=== PATIENT | female | born 1955 | race Caucasian/White ===

== ENCOUNTER → 2023-01-08 17:52 | Outpatient (BNVA) | payer MEDICARE, SELFPAY | PROVIDERS: PCP Family Medicine; Visit Provider Nurse Practitioner Family | DX: N39.0 Urinary tract infection, site not specified (principal) | CPT/HCPCS: 81000; 87086 ==

== ENCOUNTER 2023-01-12 15:59 | Emergency (ER) | payer MEDICARE, BC, SELFPAY ==
[2023-01-12 16:05] VITALS: BP 144/83; PULSE 77; RESP 16; TEMP 36.7; O2SAT 98; BMI 34.7
--- NOTE | 2023-01-12 16:10 | USR_ITS ---
PROCEDURE INFORMATION: Exam: US Duplex Left Lower Extremity Veins, Limited Exam date and time: 01/12/2023 4:38 PM Age: 67 years old Clinical indication: Pain; Leg, lower; Left; Additional info: Pain and swelling left lower leg TECHNIQUE: Imaging protocol: Real-time duplex ultrasound of the left extremity with 2-D [place] scale, color Doppler flow and spectral waveform analysis including responses to compression and other maneuvers (when performed) with image documentation. Limited exam focused on the left lower extremity veins. COMPARISON: No relevant prior studies available. FINDINGS: Left deep veins: Unremarkable. The common femoral, femoral, proximal profunda femoral, popliteal, posterior tibial and peroneal veins are patent without thrombus. Normal compressibility, augmentation response and Doppler waveforms. Superficial veins: Unremarkable. Saphenofemoral junction is patent without thrombus. Soft tissues: Subcutaneous edema in the calf. US/CV venous duplex [facility] [id number] IMPRESSION: No sonographic evidence of deep vein thrombosis.
[2023-01-12 16:16] VITALS: BP 115/95; PULSE 81; RESP 18; O2SAT 98
--- NOTE | 2023-01-12 16:16 | W.ED.EXTPRO ---
HPI - Extremity Problem General: Chief complaint: Extremity Problem,Nontraumatic Stated complaint: gio sent for left leg pain Time Seen by Provider: 01/12/23 16:09 Source: patient Mode of arrival: ambulatory History of Present Illness: 67-year-old female presents emergency room with left lower leg swelling mild redness and discomfort. He is worse today slightly over the last 24 hours was seen in outside clinic and referred to the ER for possible DVT she denies fever no chest pain or shortness of breath. No previous history of DVT or PE. MD Complaint: extremity pain and extremity swelling Onset (ago): hour(s) Pain Consistency: constant Location: left and lower extremity Quality: aching Relieving factors: nothing Exacerbating factors: nothing Associated symptoms: Deny arthralgias, chest pain, fever(s), myalgias, rash or short of breath Review of Systems Const: Denies: fever(s) or chills Card: Denies: chest pain or palpitations Resp: Denies: dyspnea, productive cough or non-productive cough GI: Denies: abdominal pain, nausea or vomiting : Denies: flank pain, difficulty voiding, dysuria, urinary frequency or urinary urgency Skin/Breast: Denies: rash or pruritus PFSH ED PFSH: Social History Smoking and tobacco status: never smoked Alcohol intake: never Substance/Drug Use: never Physical Exam Const: GENERAL APPEARANCE: cooperative and comfortable ORIENTATION/CONSCIOUSNESS: Yes awake, Yes oriented to person, Yes oriented to place and Yes oriented to time HENMT: COMMON NORMALS: normocephalic, atraumatic and hearing grossly normal bilaterally HEAD & SCALP: normocephalic and atraumatic Resp: COMMON NORMALS: normal respiratory effort, No retractions, No use of accessory muscles and clear to auscultation bilaterally AUSCULTATION: clear to auscultation bilaterally Cardio: COMMON NORMALS: regular rate, regular rhythm and No murmurs present (Cardio) RATE: regular rate RHYTHM: regular rhythm GI: COMMON NORMALS: Soft to palpation and No hepatosplenomegaly present AUSCULTATION: Yes normoactive bowel sounds PALPATION: Yes Soft to palpation, No Tenderness to palpation present (GI), No Guarding due to palpation present (GI) and Yes No hepatosplenomegaly present Extremity: OTHER: +2 swelling the right lower extremity mildly red and warm to the touch dorsalis pedis pulse palpable intact negative Homans test. No open abscesses no evidence of draining wounds. Neuro: SENSORIUM/ORIENTATION: Yes oriented to person, Yes oriented to place and Yes oriented to time Skin: COMMON NORMALS: no rashes or lesions noted GENERAL SKIN EXAM: no rashes or lesions noted Course Vital Signs: Vital signs: Vital Signs Temperature 98.0 F 01/12/23 16:05 Pulse Rate 73 01/12/23 18:17 Respiratory Rate 18 01/12/23 18:17 Blood Pressure 125/63 01/12/23 18:17 Pulse Oximetry 98 01/12/23 18:17 Oxygen Delivery Me thod Room Air 01/12/23 16:16 MDM - Extremity (Nontraumatic) Medical Decision Making Labs and imaging reviewed white count normal venous duplex negative for DVT. Treat for cellulitis start Bactrim DS. Recheck if not improving Medical Records I reviewed the patient's medical records. Lab Data I reviewed the patient's lab results. 01/12/23 17:01 01/12/23 17:01 Radiology Impressions Venous Duplex 01/12/23 16:10 IMPRESSION: No sonographic evidence of deep vein thrombosis. Laboratory Results WBC 8.8 10^3/uL (4.0-10.0) 01/12/23 17:01 RBC 4.79 10^6/uL (4.1-5.3) 01/12/23 17:01 Hgb 12.1 g/dL (11.5-15.3) 01/12/23 17:01 Hct 40.1 % (37.0-47.0) 01/12/23 17:01 MCV 83.7 fl (81-99) 01/12/23 17:01 MCH 25.3 pg (28.0-34.0) L 01/12/23 17:01 MCHC 30.2 g/dL (30.0-36.0) 01/12/23 17:01 RDW 14.8 % (12.1-15.1) 01/12/23 17:01 Plt Count 294 10^3/cmm (130-400) 01/12/23 17:01 MPV 10.5 fL (7.4-10.4) H 01/12/23 17:01 Neut % (Auto) 77.3 % 01/12/23 17:01 Lymph % (Auto) 15.3 % 01/12/23 17:01 [place] % (Auto) 5.8 % 01/12/23 17:01 Eos % (Auto) 0.8 % 01/12/23 17:01 Baso % (Auto) 0.2 % 01/12/23 17:01 Neut # (Auto) 6.80 10^3/uL (1.8-7.7) 01/12/23 17:01 Lymph # (Auto) 1.4 10^3/uL (0.8-4.8) 01/12/23 17:01 [place] # (Auto) 0.5 10^3/uL (0.2-0.9) 01/12/23 17:01 Eos # (Auto) 0.1 10^3/uL (0.0-0.8) 01/12/23 17:01 Baso # (Auto) 0.0 10^3/uL (0.0-0.1) 01/12/23 17:01 Nucleated RBC % (auto) 0 % 01/12/23 17:01 Nucleated RBCs # 0.0 /100WBC 01/12/23 17:01 Sodium 139 mmol/L (136-145) 01/12/23 17:01 Potassium 3.2 mmol/L (3.5-5.1) L 01/12/23 17:01 Chloride 102 mmol/L (98-107) 01/12/23 17:01 Carbon Dioxide 24 mmol/L (22-29) 01/12/23 17:01 Anion Gap 16.2 (5-19) 01/12/23 17:01 BUN 9 mg/dL (8-23) 01/12/23 17:01 Creatinine 0.6 mg/dL (0.5-0.9) 01/12/23 17:01 GFR Calculation 100.0 mL/min (90-130) 01/12/23 17:01 Glucose 120 mg/dL (65-115) H 01/12/23 17:01 Calculated Osmolality 288 mOsm/kg (285-295) 01/12/23 17:01 Calcium 8.7 mg/dL (8.5-10.5) 01/12/23 17:01 Total Bilirubin 0.4 mg/dL (0.15-1.2) 01/12/23 17:01 AST 14 U/L (0-32) 01/12/23 17:01 ALT 16 U/L (0-33) 01/12/23 17:01 Alkaline Phosphatase 64 U/L (35-105) 01/12/23 17:01 Total Protein 6.6 g/dL (6.6-8.7) 01/12/23 17:01 Albumin 3.8 g/dL (3.5-5.2) 01/12/23 17:01 Globulin 2.8 g/dL (1.3-4.6) 01/12/23 17:01 Discharge Plan Discharge Patient Disposition: Home Clinical Impression: Cellulitis of left lower extremity Condition: Stable Prescriptions: New Bactrim DS 800-160 mg tablet 1 tab PO BID 10 Days Qty: 20 0RF Discontinued nitrofurantoin macrocrystal 100 mg capsule 100 mg PO BID Rx Instructions: for 5 days (rx filled 01/08/23) No Action Vitamin B-12 1,000 mcg Tablet 1,000 mcg PO DAILY Vitamin D3 25 mcg (1,000 unit) Capsule 25 mcg PO DAILY Discharge Orders: Discharge ED (Routine); Ordered 01/12/23 Ordered By: Adonis Allan Referrals: Dee Herrera MD [Primary Care Provider] - Discharge Diet: Usual diet Discharge Activity: Resume usual activity Patient Instructions: Cellulitis (ED), Opioid Safety, Pain Management Activity Restrictions/Additional Instructions: You are seen today for left lower leg pain ultrasound was negative for clot does appear to you have a cellulitis which we will treat with a oral antibiotic stop the Macrobid start the Bactrim Coding Level of Care Code ED Professional Services Manager for Olimpia Turner
[2023-01-12 17:16] LABS: Basophils % 0.2 %; Eosinophils # 0.1 10^3/uL (0.0-0.8); Eosinophils % 0.8 %; Hematocrit 40.1 % (37.0-47.0); Hemoglobin 12.1 g/dL (11.5-15.3); Lymphocytes # 1.4 10^3/uL (0.8-4.8); Lymphocytes % 15.3 %; Mean Corpuscular HGB Conc 30.2 g/dL (30.0-36.0); Mean Corpuscular Hemoglobin 25.3 pg (28.0-34.0); Mean Corpuscular Volume 83.7 fl (81-99); Mean Platelet Volume 10.5 fL (7.4-10.4); Monocytes # 0.5 10^3/uL (0.2-0.9); Monocytes % 5.8 %; Neutrophils % 77.3 %; Nucleated Red Blood Cells % 0 %; Platelet Count 294 10^3/cmm (130-400); Red Blood Count 4.79 10^6/uL (4.1-5.3); Red Cell Distribution Width 14.8 % (12.1-15.1); White Blood Count 8.8 10^3/uL (4.0-10.0)
[2023-01-12 17:50] LABS: Alanine Aminotransferase 16 U/L (0-33); Albumin Level 3.8 g/dL (3.5-5.2); Alkaline Phosphatase 64 U/L (35-105); Anion Gap 16.2 (5-19); Aspartate Amino Transferase 14 U/L (0-32); Blood Urea Nitrogen 9 mg/dL (8-23); Calcium 8.7 mg/dL (8.5-10.5); Carbon Dioxide 24 mmol/L (22-29); Chloride 102 mmol/L (98-107); Creatinine Clr Calc Pharmacy 73.1667; Globulin 2.8 g/dL (1.3-4.6); Glucose 120 mg/dL (65-115); Osmolality Calculated 288 mOsm/kg (285-295); Potassium 3.2 mmol/L (3.5-5.1); Sodium 139 mmol/L (136-145); Total Bilirubin 0.4 mg/dL (0.15-1.2); Total Protein 6.6 g/dL (6.6-8.7)
[2023-01-12 18:17] VITALS: BP 125/63; PULSE 73; RESP 18; O2SAT 98
== END 2023-01-12 18:31 | disposition home or self-care (01) ==
PROVIDERS: Emergency Provider Family Medicine; PCP Family Medicine
DX: L03.116 Cellulitis of left lower limb (principal); M79.605 Pain in left leg
CPT/HCPCS: 36415; 80053; 85025; 87040; 93971; 99284